=== PATIENT | male | born 1985 | race Caucasian/White ===

== ENCOUNTER 2016-10-16 16:29 | Emergency (ER) | payer MEDICARE, OTHER, MEDICAID ==
[2016-10-16 17:38] VITALS: BP 136/82
--- NOTE | 2016-10-16 17:43 | ER Document Report ---
ED Medical Screen (RME) - General Chief Complaint: Psych Problem Stated Complaint: NAUSEA,VOMITING Time Seen by Provider: 10/16/16 17:26 Mode of Arrival: Ambulatory Information source: Patient Notes: 31-year-old man who presents to the emergency room with worsening anxiety. He does have a history of bipolar affective disorder with schizophrenic features and states that he ran out of his medicines 2 weeks ago and has been waiting for his medicines to be refilled by [facility]. In in today because he was feeling worse - HPI Onset: Last week Onset/Duration: Gradual Quality of pain: No pain Severity: None Pain Level: Denies Associated Symptoms: None Exacerbated by: Denies Relieved by: Denies Similar symptoms previously: Yes Recently seen / treated by doctor: Yes - Related Data Smoking: Non-smoker Frequency of alcohol use: None Drug Abuse: None Allergies/Adverse Reactions: Latex, Natural Rubber Allergy (Verified 10/16/16 17:12) quetiapine [From Seroquel] Allergy (Verified 10/16/16 17:12) zolpidem [From Ambien] Allergy (Verified 10/16/16 17:12) Home Medications: Current Home Medications Fexofenadine HCl [Cassandra] 180 mg PO DAILY 10/16/16 [History] Hydroxyzine HCl 25 mg PO TID 10/16/16 [History] Lamotrigine 50 mg PO DAILY 10/16/16 [History] Omeprazole 40 mg PO DAILY 10/16/16 [History] Ziprasidone HCl [Geodon 60 mg Capsule] 60 mg PO BID 10/16/16 [History] Past Medical History - General Information source: Patient - Social History Cigarette use (# per day): No Chew tobacco use (# tins/day): No Frequency of alcohol use: None Drug Abuse: None Lives with: Family Family history: Reviewed & Not Pertinent - Past Medical History Cardiac Medical History: Reports: None Pulmonary Medical History: Reports: None EENT Medical History: Reports: None Neurological Medical History: Reports: None Endocrine Medical History: Reports: None Renal/ Medical History: Reports: None Malignancy Medical History: Reports None GI Medical History: Reports: None Musculoskeltal Medical History: Reports None Skin Medical History: Reports None Psychiatric Medical History: Reports: Hx Bipolar Disorder, Hx Depression Review of Systems - Review of Systems Constitutional: denies: Chills, Fever EENT: No symptoms reported Cardiovascular: No symptoms reported Respiratory: No symptoms reported Gastrointestinal: No symptoms reported Genitourinary: No symptoms reported Male Genitourinary: No symptoms reported Musculoskeletal: No symptoms reported Skin: No symptoms reported Hematologic/Lymphatic: No symptoms reported Neurological/Psychological: See HPI Physical Exam - Vital signs Vitals: Pulse Resp BP Pulse Ox 94 18 136/82 H 97 10/16/16 17:37 10/16/16 17:37 10/16/16 17:37 10/16/16 17:37 Notes: Physical exam: GENERAL:-year-old man, alert and oriented 3, no acute distress HEAD: Atraumatic, normocephalic. EYES: Pupils equal round and reactive to light, extraocular movements intact, sclera anicteric, conjunctiva are normal. ENT: TMs normal, nares patent, oropharynx clear without exudates. Moist mucous membranes. NECK: Normal range of motion, supple without lymphadenopathy or JVD. LUNGS: Breath sounds clear to auscultation bilaterally and equal. No wheezes rales or rhonchi. HEART: Regular rate and rhythm without murmurs, rubs or gallops. ABDOMEN: Soft, normoactive bowel sounds. No tenderness to palpation. No guarding, no rebound. No masses appreciated. EXTREMITIES: Normal range of motion, no pitting or edema. No clubbing or cyanosis. NEUROLOGICAL: Cranial nerves II through XII grossly intact. Normal speech, normal gait. PSYCH: Normal mood, normal affect. SKIN: Warm, Dry, normal turgor, no rashes or lesions noted. Course - Vital Signs Vital signs: Temp Pulse Resp BP Pulse Ox 94 18 136/82 H 97 10/16/16 17:37 10/16/16 17:37 10/16/16 17:37 10/16/16 17:37 Doctor's Discharge - Discharge Clinical Impression: Bipolar affective disorder Condition: Stable Disposition: HOME, SELF-CARE Additional Instructions: As we discussed, follow-up at [facility] this week. Call the office first thing in the morning The emergency room for any thoughts of wanting to hurt yourself or others Prescriptions: Hydroxyzine HCl 50 mg PO QHS PRN #10 tablet PRN Reason: Lamotrigine 50 mg PO DAILY #10 tablet Ziprasidone HCl 60 mg PO BID #10 capsule
[2016-10-16] MEDS ORDERED: PROMETHAZINE HCL 25 MG TABLET PO ONE (17:52)
== END 2016-10-16 17:59 | disposition home or self-care (01) ==
LOC: ER 16:29
DX: F31.9 Bipolar disorder, unspecified (principal); R11.2 Nausea with vomiting, unspecified; Z79.899 Other long term (current) drug therapy
CPT/HCPCS: 99284; A9270

== ENCOUNTER 2017-03-10 19:59 | Emergency (ER) | payer MEDICARE, OTHER ==
--- NOTE | 2017-03-10 20:49 | ER Document Report ---
ED Psych Disorder / Suicide - General Mode of Arrival: Ambulatory Information source: Patient <ALEENA JOHN - Last Filed: 03/11/17 01:22> <BLACK REYES - Last Filed: 03/11/17 01:56> - General Stated Complaint: POSSIBLE SUICIDAL IDEATION Time Seen by Provider: 03/10/17 20:11 Notes: Patient is a 32 year old male with a history of Bipolar Disorder, Depression, and Schizophrenia presents to the emergency department for suicidal ideation. Patient states that he had gotten into a argument with his and his grandmother. Patient states that after the argument he decided to self harm with a razor on his left arm and that he wanted everything to stop.Patient states that he realized that he was making things worse he decided to stop. Patient states that he did not or currently has any suicidal or homicidal plans. Patient states that he often gets into arguments with his and feels that he has to "one up" his during arguments. Patient states that he often feels lonely when not with his and that he has no family in state. Patient states he missed his [facility] appointment yesterday and feels that his medication is not working incredibly well. (ALEENA JOHN) - Related Data Allergies/Adverse Reactions: Latex, Natural Rubber Allergy (Verified 10/16/16 17:12) quetiapine [From Seroquel] Allergy (Verified 10/16/16 17:12) zolpidem [From Ambien] Allergy (Verified 10/16/16 17:12) Home Medications: Current Home Medications Albuterol Sulfate [Proair Hfa Inhalation Aerosol 8.5 gm Mdi] 2 puff IH Q4HP PRN 03/10/17 [History] Lamotrigine 150 mg PO DAILY 03/10/17 [History] Ramelteon [Rozerem] 8 mg PO QHS 03/10/17 [History] Past Medical History - General Information source: Patient - Social History Smoking Status: Current Every Day Smoker Chew tobacco use (# tins/day): No Smoking Education Provided: Yes - > 4 mins Frequency of alcohol use: Occasional Drug Abuse: None Family History: Reviewed & Not Pertinent Psychiatric Medical History: Reports: Hx Bipolar Disorder, Hx Depression <ALEENA JOHN - Last Filed: 03/11/17 01:22> Review of Systems - Review of Systems Constitutional: No symptoms reported EENT: No symptoms reported Cardiovascular: No symptoms reported Respiratory: No symptoms reported Gastrointestinal: No symptoms reported Genitourinary: No symptoms reported Male Genitourinary: No symptoms reported Musculoskeletal: No symptoms reported Skin: No symptoms reported Hematologic/Lymphatic: No symptoms reported Neurological/Psychological: See HPI, Suicidal ideation -: Yes All other systems reviewed and negative <ALEENA JOHN - Last Filed: 03/11/17 01:22> Physical Exam <ALEENA JOHN - Last Filed: 03/11/17 01:22> <LEXATAMMIBLACK - Last Filed: 03/11/17 01:56> - Vital signs Vitals: Temp Pulse Resp BP Pulse Ox 99.2 F 99 20 146/87 H 96 03/10/17 22:08 03/10/17 22:08 03/10/17 22:08 03/10/17 22:08 03/10/17 22:08 - Notes Notes: GENERAL: Alert, interacts well. No acute distress. HEAD: Normocephalic, atraumatic. EYES: Pupils equal, round, and reactive to light. Extraocular movements intact. ENT: Oral mucosa moist, tongue midline. NECK: Full range of motion. Supple. Trachea midline. LUNGS: Clear to auscultation bilaterally, no wheezes, rales, or rhonchi. No respiratory distress. HEART: Regular rate and rhythm. No murmurs, gallops, or rubs. ABDOMEN: Soft, non-tender. Non-distended. Bowel sounds present in all 4 quadrants. EXTREMITIES:Superficial abrasions on left forearm, volar aspect, no active bleeding. Moves all 4 extremities spontaneously. No edema, radial and dorsalis pedis pulses 2/4 bilaterally. No cyanosis. NEUROLOGICAL: Alert and oriented x3. Normal speech. PSYCH: Normal affect, normal mood. SKIN: Warm, dry, normal turgor. (DORAALEENA) Course - Laboratory Result Diagrams: 03/10/17 20:45 03/10/17 20:45 - Consults ALEJANDRA Rosales Time consulted: 20:53 - Stated already talked to patient, agreed to appointment on 03/13/2017 and discussed changing medicaiton. <ALEENA JOHN - Last Filed: 03/11/17 01:22> - Laboratory Result Diagrams: 03/10/17 20:45 03/10/17 20:45 <BLACK REYES - Last Filed: 03/11/17 01:56> - Re-evaluation Re-evalutation: 03/11/17 01:54 CBC unremarkable, CMP unremarkable, urinalysis shows moderate blood and moderate leukocyte esterase, 3+ bacteria, sent for culture. No active suicidal ideation at this time, showed good insight and understanding why he started to make superficial cut jackson and why he is fighting with his and other family members from his side of the family. Patient already has a follow-up appointment on Monday, discussed with Dr. Garza who agrees that the patient is safe for discharge to home, agrees that the patient should not have medications adjusted tonight but wait until his follow-up appointment on Monday with alejandra. [facility]. Patient in agreement with discharge plan and eager to leave. 03/11/17 01:55 UTI treated with antibiotics. Low suspicion for kidney stone. Denies any urinary symptoms or flank pain. (BLACK REYES) - Vital Signs Vital signs: Temp Pulse Resp BP Pulse Ox 99.2 F 99 20 146/87 H 96 03/10/17 22:08 03/10/17 22:08 03/10/17 22:08 03/10/17 22:08 03/10/17 22:08 - Laboratory Laboratory results interpreted by me: 03/10/17 03/10/17 20:45 20:45 Urine Protein 30 H Urine Blood MODERATE H Ur Leukocyte Esterase MODERATE H Salicylates < 1.0 L Acetaminophen < 10 L - EKG Interpretation by Me Additional EKG results interpreted by me: 03/10/17 22:11 EKG shows sinus rhythm rate 96, normal axis, normal intervals, no ST segment elevations or depressions, no T-wave inversions per my interpretation. (BLACK REYES) Discharge <ALEENA JOHN - Last Filed: 03/11/17 01:22> <BLACK REYES - Last Filed: 03/11/17 01:56> - Discharge Clinical Impression: Self-mutilation Urinary tract infection Qualifiers: Urinary tract infection type: acute cystitis Hematuria presence: with hematuria Qualified Code(s): N30.01 - Acute cystitis with hematuria Hypertension Qualifiers: Hypertension type: essential hypertension Qualified Code(s): I10 - Essential ( primary) hypertension Condition: Stable Disposition: HOME, SELF-CARE Instructions: Urinary Tract Infection ([facility]) Additional Instructions: Please follow-up with [facility] on Monday. You do have a mild urinary tract infection today, he has some blood in it. I have prescribed to Bactrim. This is an antibiotic. It will not interact with your medications. Please take 1 tab twice a day for the next 7 days. Prescriptions: Sulfamethoxazole/Trimethoprim [Bactrim Ds Tablet] 1 each PO BID #14 tablet Forms: Elevated Blood Pressure Referrals: VANDANA YANG MD [Primary Care Provider] - Follow up in 3-5 days [facility] [Provider Group] - 03/13/17 Tigre Attestation: 03/11/17 01:56 I personally performed the services described in the documentation, reviewed and edited the documentation which was dictated to the scribe in my presence, and it accurately records my words and actions. (BLACK REYES) Scribe Documentation - Scribe Written by Tigre:: Tigre Sanchez, 03/10/2017 20:59 acting as scribe for :: Jeff <ALEENA JOHN - Last Filed: 03/11/17 01:22>
[2017-03-10 20:59] LABS: ABSOLUTE BASOPHILS # (AUTO) 0.1 10^3/uL (0.0-0.2); ABSOLUTE EOSINOPHILS # (AUTO) 0.2 10^3/uL (0.0-0.6); ABSOLUTE LYMPHOCYTES (AUTO) 3.1 10^3/uL (0.5-4.7); ABSOLUTE MONOCYTES (AUTO) 0.4 10^3/uL (0.1-1.4); ABSOLUTE NEUT (AUTO) 6.5 10^3/uL (1.7-8.2); BASOPHILS % (AUTO) 0.8 % (0-2); EOSINOPHILS % (AUTO) 1.7 % (0-6); HEMATOCRIT 43.6 % (37.9-51.0); HEMOGLOBIN 14.9 g/dL (13.5-17.0); HGB HCT DIFFERENCE 1.1; LYMPHOCYTES % (AUTO) 30.4 % (13-45); MEAN CORPUSCULAR HEMOGLOBIN 28.5 pg (27.0-33.4); MEAN CORPUSCULAR HGB CONC 34.2 g/dL (32.0-36.0); MEAN CORPUSCULAR VOLUME 83 fl (80-97); MONOCYTES % (AUTO) 4.3 % (3-13); RED BLOOD COUNT 5.23 10^6/uL (4.35-5.55); SEGMENTED NEUTROPHILS % (AUTO) 62.8 % (42-78); WHITE BLOOD COUNT 10.3 10^3/uL (4.0-10.5)
--- NOTE | 2017-03-10 21:01 | EKG REPORT ---
SEVERITY:- NORMAL ECG - SINUS RHYTHM : Confirmed by: Ravi Quinones 10-Mar-2017 21:00:48
[2017-03-10 21:02] LABS: APPEARANCE,URINE SLIGHTLY-CLOUDY; BILIRUBIN,URINE NEGATIVE (NEGATIVE); GLUCOSE, URINE NEGATIVE (NEGATIVE); KETONES,URINE NEGATIVE (NEGATIVE); LEUKOCYTE ESTERASE,URINE MODERATE (NEGATIVE); NITRITE,URINE NEGATIVE (NEGATIVE); PROTEIN,URINE 30 mg/dL (NEGATIVE); URINE SPECIFIC GRAVITY 1.017; UROBILINOGEN,URINE NEGATIVE mg/dL (<2.0)
[2017-03-10 21:12] LABS: URINE BARBITURATES SCREEN NEGATIVE; URINE METHADONE SCREEN NEGATIVE; URINE OPIATES LOW NEGATIVE; URINE PHENCYCLIDINE SCREEN NEGATIVE
[2017-03-10 21:15] LABS: ALANINE AMINOTRANSFERASE 65 U/L (21-72); ALBUMIN 4.4 g/dL (3.5-5.0); ALCOHOL < 10 mg/dL (NONE DETECTED); ALKALINE PHOSPHATASE 72 U/L (38-126); ANION GAP 12 (5-19); ASPARTATE AMINO TRANSFERASE 29 U/L (17-59); BILIRUBIN,DIRECT 0.2 mg/dL (0.0-0.4); BILIRUBIN,TOTAL 0.3 mg/dL (0.2-1.3); BLOOD UREA NITROGEN 9 mg/dL (7-20); CALCIUM 9.6 mg/dL (8.4-10.2); CARBON DIOXIDE 28 mmol/L (22-30); CHLORIDE 101 mmol/L (98-107); CREATININE RESULT 0.79 mg/dL (0.52-1.25); GLUCOSE 101 mg/dL (75-110); POTASSIUM 4.5 mmol/L (3.6-5.0); SODIUM 141.4 mmol/L (137-145)
[2017-03-10 22:10] VITALS: BP 146/87
== END 2017-03-10 22:20 | disposition home or self-care (01) ==
LOC: ER 19:59
DX: N30.01 Acute cystitis with hematuria (principal); I10 Essential (primary) hypertension; R45.851 Suicidal ideations; Z91.040 Latex allergy status
CPT/HCPCS: 36415; 80053; 80307; 81001; 85025; 93005; 93010; 99284

== ENCOUNTER 2017-07-14 19:59 | Emergency (ER) | payer MEDICARE, MEDICAID ==
[2017-07-14 22:03] LABS: APPEARANCE,URINE CLOUDY; BILIRUBIN,URINE NEGATIVE (NEGATIVE); COLOR,URINE YELLOW; GLUCOSE, URINE NEGATIVE (NEGATIVE); KETONES,URINE NEGATIVE (NEGATIVE); LEUKOCYTE ESTERASE,URINE LARGE (NEGATIVE); NITRITE,URINE POSITIVE (NEGATIVE); PROTEIN,URINE 100 mg/dL (NEGATIVE); URINE SPECIFIC GRAVITY 1.021; UROBILINOGEN,URINE NEGATIVE mg/dL (<2.0)
[2017-07-14] MEDS ORDERED: LIDOCAINE 1% INJ-PF (10 MG/ML) 30 ML SDV INFIL ONE (22:36)
[2017-07-14] MEDS ORDERED: CEFTRIAXONE INJ 1000 MG VIAL IM ONE (22:36)
--- NOTE | 2017-07-14 23:04 | ER Document Report ---
ED GI/ - General Chief Complaint: Penile Pain Stated Complaint: TESTICULAR PAIN Time Seen by Provider: 07/14/17 21:22 Notes: Patient is a 32-year-old male with a past medical history of morbid obesity, does practice penetrative anal intercourse who presents with 1 week of progressively worsening scrotal swelling and pain. Patient notes a dull, constant, throbbing pain to his scrotum particularly on the left side. Touching the area worsens the pain. Nothing improves the pain. He denies any history of similar symptoms in the past. He is monogamous with one male partner. He has not had any fever, spreading redness on his leg, lymphadenopathy, abdominal pain nausea vomiting or diarrhea. He does note associated dysuria and bleeding from his urethral meatus. - Related Data Allergies/Adverse Reactions: Latex, Natural Rubber Allergy (Verified 10/16/16 17:12) quetiapine [From Seroquel] Allergy (Verified 10/16/16 17:12) zolpidem [From Ambien] Allergy (Verified 10/16/16 17:12) Past Medical History - General Information source: Patient - Social History Smoking Status: Never Smoker Frequency of alcohol use: None Drug Abuse: None Lives with: Spouse/Significant other Family History: Reviewed & Not Pertinent Patient has suicidal ideation: No Patient has homicidal ideation: No Renal/ Medical History: Denies: Hx Peritoneal Dialysis Psychiatric Medical History: Reports: Hx Bipolar Disorder, Hx Depression Review of Systems - Review of Systems Notes: Constitutional: Negative for fever. HENT: Negative for sore throat. Eyes: Negative for visual changes. Cardiovascular: Negative for chest pain. Respiratory: Negative for shortness of breath. Gastrointestinal: Negative for abdominal pain, vomiting or diarrhea. Genitourinary: Positive for dysuria, scrotal swelling, testicular pain Musculoskeletal: Negative for back pain. Skin: Negative for rash. Neurological: Negative for headaches, weakness or numbness. 10 point ROS negative except as marked above and in HPI. Physical Exam - Vital signs Vitals: Temp Pulse Resp BP Pulse Ox 98.0 F 97 18 146/89 H 98 07/14/17 20:25 07/14/17 20:25 07/14/17 20:25 07/14/17 20:25 07/14/17 20:25 Interpretation: Normal Notes: PHYSICAL EXAMINATION: GENERAL: Well-appearing, well-nourished and in no acute distress. HEAD: Atraumatic, normocephalic. EYES: Pupils equal round and reactive to light, extraocular movements intact, sclera anicteric, conjunctiva are normal. ENT: nares patent, oropharynx clear without exudates. Moist mucous membranes. NECK: Normal range of motion, supple without lymphadenopathy LUNGS: Breath sounds clear to auscultation bilaterally and equal. No wheezes rales or rhonchi. HEART: Regular rate and rhythm without murmurs ABDOMEN: Soft, morbidly obese abdomen, nontender, normoactive bowel sounds. No guarding, no rebound. No masses appreciated. : Diffuse scrotal swelling more impressive towards the left testicle. No evidence of a fluid collection or drainable mass. No erythema noted to the scrotum or inner thighs. No inguinal lymphadenopathy. No penile lesions. EXTREMITIES: Normal range of motion, no pitting or edema. No cyanosis. NEUROLOGICAL: No focal neurological deficits. Moves all extremities spontaneously and on command. PSYCH: Normal mood, normal affect. SKIN: Warm, Dry, normal turgor, no rashes or lesions noted. Course - Re-evaluation Re-evalutation: 07/14/17 23:03 Patient's presentation is most consistent with an acute orchitis of the left testicle supported by urinalysis and ultrasound. Questionable associated cellulitis of the scrotum on ultrasound with a edematous nature to the scrotum but no evidence of a drainable fluid collection on either exam or ultrasound. No evidence of necrotizing fasciitis based on examination, vitals or history. I do not clinically suspect a testicular torsion, testicular abscess, or any alternative pathology based on exam, history, urinalysis and ultrasound. Patient has been treated with ceftriaxone here in the emergency department and will be discharged on cephalexin and trimethoprim sulfamethoxazole. At this time will discharge with return precautions and follow-up recommendations. Verbal discharge instructions given a the bedside and opportunity for questions given. Medication warnings reviewed. Patient is in agreement with this plan and has verbalized understanding of return precautions and the need for primary care follow-up in the next 24-72 hours. - Vital Signs Vital signs: Temp Pulse Resp BP Pulse Ox 98.0 F 105 H 18 156/99 H 98 07/14/17 20:25 07/15/17 00:30 07/15/17 00:30 07/15/17 00:30 07/15/17 00:30 - Laboratory Laboratory results interpreted by me: 07/14/17 21:35 Urine Protein 100 H Urine Blood MODERATE H Urine Nitrite POSITIVE H Ur Leukocyte Esterase LARGE H - Diagnostic Test Radiology reviewed: Reports reviewed Discharge - Discharge Clinical Impression: Orchitis, Cellulitis of scrotum Condition: Good Disposition: HOME, SELF-CARE Additional Instructions: You need to take all the antibiotics until they are completed. Your ultrasound and history are most consistent with an infection of your left testicle as well as a possible infection of your scrotum. For your pain: Take ibuprofen 600 mg and acetaminophen 1000 mg every 6 hours together as needed for pain. Please follow-up with urology within the next 24-48 hours. Return immediately to the emergency department if you develop fever, worsening of your swelling, worsening of your pain, become unable to urinate, or have any other symptoms that are worrisome to you. Prescriptions: Cephalexin Monohydrate [Keflex 500 mg Capsule] 500 mg PO Q6H 7 Days capsule Sulfamethoxazole/Trimethoprim [Bactrim Ds Tablet] 2 tab PO BID #28 tablet Referrals: AVNDANA YANG MD [Primary Care Provider] - Follow up as needed KATIE PULIDO II, MD [[facility]] - Follow up in 3-5 days
[2017-07-14 23:17] LABS: CHLAM PCR NOT DETECTED (NOT DETECT); GON PCR NOT DETECTED (NOT DETECT)
--- NOTE | 2017-07-14 23:41 | RADIOLOGY REPORT (SQ) ---
EXAM DESCRIPTION: U/S SCROTUM W/DOPPLER COMPLETED DATE/TIME: 07/14/2017 10:54 pm REASON FOR STUDY: testicular pain COMPARISON: None. TECHNIQUE: Static and realtime tong scale imaging of the scrotum and testes. Selected color Doppler and spectral images recorded to document blood flow. LIMITATIONS: None. FINDINGS: RIGHT: TESTICLE: Normal size. Normal echotexture. Normal blood flow. No mass. EPIDIDYMIS: Mild heterogeneous appearance-enlargement. HYDROCELE OR VARICOCELE: Small complex hydrocele. No varicocele. HERNIA OR EXTRA-TESTICULAR MASS: No. OTHER: Scrotal skin thickening and heterogeneous fluid in the midline. LEFT: TESTICLE: Normal size. Normal echotexture. Normal blood flow. No mass. EPIDIDYMIS: Mild heterogeneous appearance-enlargement. HYDROCELE OR VARICOCELE: Trace hydrocele. No varicocele. HERNIA OR EXTRA-TESTICULAR MASS: No. OTHER: Scrotal skin thickening and heterogeneous fluid in the midline. IMPRESSION: Scrotal skin thickening and heterogeneous fluid in the midline subcutaneous soft tissues . Mild heterogeneous appearance -enlargement of each epididymis. Small complex right hydrocele. NO EVIDENCE OF TESTICULAR MASS OR TORSION. TECHNICAL DOCUMENTATION: JOB ID: [id number] [employer] - [employer]- All Rights Reserved Reading location - IP/workstation name: [email or web address]
[2017-07-15] MEDS ORDERED: SULFAMETHOXAZOLE/TRIMETHOPRIM 800-160 MG TABLET PO ONE (00:06)
[2017-07-15 00:33] VITALS: BP 156/99
== END 2017-07-15 00:33 | disposition home or self-care (01) ==
LOC: ER 19:59
DX: N45.2 Orchitis (principal); N49.2 Inflammatory disorders of scrotum; E66.01 Morbid (severe) obesity due to excess calories; Z91.040 Latex allergy status
CPT/HCPCS: 99284; 36415; 87086; 87088; 81001; 87186; 87491; 87591; 76870; 93976; J3490; J0696; A9270

== ENCOUNTER 2018-06-08 22:34 | Emergency (ER) | payer MEDICARE, MEDICAID ==
--- NOTE | 2018-06-08 22:37 | ER Document Report ---
ED Medical Screen (RME) - General Stated Complaint: SUICIDAL THOUGHTS Time Seen by Provider: 06/08/18 22:35 Primary Care Provider: VANDANA YANG MD [PEDIATRICS] - Follow up as needed Mode of Arrival: Ambulatory Information source: Patient Notes: PT HAVING SI THOUGHT FOR A FEW MONTHS. HAS ATTEMPTED IN THE PAST. HAS NEIGHBOR WITH HIM, HAS BEEN TAKING TYLENOL EVERY FEW HOURS-- ? I have greeted and performed a rapid initial assessment of this patient. A comprehensive ED assessment and evaluation of the patient, analysis of test results and completion of the medical decision making process will be conducted by additional ED providers. - Related Data Allergies/Adverse Reactions: Latex, Natural Rubber Allergy (Verified 10/16/16 17:12) quetiapine [From Seroquel] Allergy (Verified 10/16/16 17:12) zolpidem [From Ambien] Allergy (Verified 10/16/16 17:12) Past Medical History - Social History Family history: Reviewed & Not Pertinent Renal/ Medical History: Denies: Hx Peritoneal Dialysis Psychiatric Medical History: Reports: Hx Bipolar Disorder, Hx Depression Physical Exam - Vital signs Vitals: Temp Pulse Resp BP Pulse Ox 98.7 F 109 H 19 150/87 H 97 06/09/18 00:10 06/09/18 00:10 06/09/18 00:10 06/09/18 00:10 06/09/18 00:10 Course - Vital Signs Vital signs: Temp Pulse Resp BP Pulse Ox 98.7 F 109 H 19 150/87 H 97 06/09/18 00:10 06/09/18 00:10 06/09/18 00:10 06/09/18 00:10 06/09/18 00:10 - Laboratory Result Diagrams: 06/08/18 22:40 06/08/18 22:40 Laboratory results interpreted by me: 06/08/18 06/08/18 06/08/18 22:40 22:40 22:40 WBC 14.7 H RDW 14.3 H Absolute Neutrophils 8.9 H Calcium 10.5 H AST 90 H ALT 139 H Total Protein 8.7 H Urine Blood MODERATE H Ur Leukocyte Esterase SMALL H Salicylates < 1.0 L Acetaminophen < 10 L Doctor's Discharge - Discharge Referrals: VANDANA YANG MD [PEDIATRICS] - Follow up as needed
[2018-06-08 23:10] LABS: ABSOLUTE BASOPHILS # (AUTO) 0.1 10^3/uL (0.0-0.2); ABSOLUTE EOSINOPHILS # (AUTO) 0.3 10^3/uL (0.0-0.6); ABSOLUTE LYMPHOCYTES (AUTO) 4.7 10^3/uL (0.5-4.7); ABSOLUTE MONOCYTES (AUTO) 0.7 10^3/uL (0.1-1.4); ABSOLUTE NEUT (AUTO) 8.9 10^3/uL (1.7-8.2); BASOPHILS % (AUTO) 0.7 % (0-2); EOSINOPHILS % (AUTO) 1.9 % (0-6); HEMATOCRIT 43.8 % (37.9-51.0); HEMOGLOBIN 15.3 g/dL (13.5-17.0); LYMPHOCYTES % (AUTO) 32.1 % (13-45); MEAN CORPUSCULAR HEMOGLOBIN 29.6 pg (27.0-33.4); MEAN CORPUSCULAR HGB CONC 34.9 g/dL (32.0-36.0); MEAN CORPUSCULAR VOLUME 85 fl (80-97); MONOCYTES % (AUTO) 4.8 % (3-13); PLATELET COUNT 386 10^3/uL (150-450); RED BLOOD COUNT 5.16 10^6/uL (4.35-5.55); RED CELL DISTRIBUTION WIDTH 14.3 % (11.5-14.0); SEGMENTED NEUTROPHILS % (AUTO) 60.5 % (42-78); TOTAL CELLS COUNTED % (AUTO) 100 %; WHITE BLOOD COUNT 14.7 10^3/uL (4.0-10.5)
[2018-06-08 23:26] LABS: APPEARANCE,URINE SLIGHTLY-CLOUDY; BILIRUBIN,URINE NEGATIVE (NEGATIVE); COLOR,URINE YELLOW; GLUCOSE, URINE NEGATIVE (NEGATIVE); KETONES,URINE NEGATIVE (NEGATIVE); LEUKOCYTE ESTERASE,URINE SMALL (NEGATIVE); NITRITE,URINE NEGATIVE (NEGATIVE); PROTEIN,URINE NEGATIVE (NEGATIVE); URINE SPECIFIC GRAVITY 1.021; UROBILINOGEN,URINE NEGATIVE mg/dL (<2.0)
[2018-06-08 23:35] LABS: URINE AMPHETAMINES SCREEN NEGATIVE; URINE BARBITURATES SCREEN NEGATIVE; URINE BENZODIAZEPINES SCREEN NEGATIVE; URINE COCAINE SCREEN NEGATIVE; URINE MARIJUANA (THC) SCREEN NEGATIVE; URINE METHADONE SCREEN NEGATIVE; URINE PHENCYCLIDINE SCREEN NEGATIVE
[2018-06-08 23:42] LABS: ALANINE AMINOTRANSFERASE 139 U/L (21-72); ALBUMIN 4.8 g/dL (3.5-5.0); ALKALINE PHOSPHATASE 80 U/L (38-126); ANION GAP 16 (5-19); ASPARTATE AMINO TRANSFERASE 90 U/L (17-59); BILIRUBIN,DIRECT 0.3 mg/dL (0.0-0.4); BILIRUBIN,TOTAL 0.4 mg/dL (0.2-1.3); BLOOD UREA NITROGEN 15 mg/dL (7-20); CALCIUM 10.5 mg/dL (8.4-10.2); CARBON DIOXIDE 24 mmol/L (22-30); CHLORIDE 101 mmol/L (98-107); GLUCOSE 92 mg/dL (75-110); POTASSIUM 4.5 mmol/L (3.6-5.0); SODIUM 140.6 mmol/L (137-145); TOTAL PROTEIN 8.7 g/dL (6.3-8.2)
[2018-06-08 23:49] LABS: ACETAMINOPHEN < 10 ug/mL (10-30); ALCOHOL < 10 mg/dL (NONE DETECTED); SALICYLATE < 1.0 mg/dL (2.0-20.0)
[2018-06-09] MEDS ORDERED: MIRTAZAPINE 15 MG TABLET PO ONE (01:06)
--- NOTE | 2018-06-09 07:01 | ER Document Report ---
ED General <ROMAN BROUSSARD - Last Filed: 06/09/18 11:20> - General Mode of Arrival: Ambulatory <YASMINE COVARRUBIAS - Last Filed: 06/10/18 08:31> - General Chief Complaint: Suicidal Ideation Stated Complaint: SUICIDAL THOUGHTS Time Seen by Provider: 06/08/18 22:35 Primary Care Provider: Mireya TUTTLE [Provider Group] - Follow up as needed VANDANA YANG MD [PEDIATRICS] - Follow up as needed Notes: Patient is a 33-year-old male who presents with complaint of suicidal thoughts. Patient says he has had intermittent suicidal thoughts for a while now. Says tonight he became very upset. His neighbors have him come to the ER because of the concerns of what he said. He does admit to saying that he want to kill himself. He says he does not think he will ever actually kill himself but he sometimes becomes emotional upset and will say these things. Patient showed me several text messages as well as Facebook posts where he talked about not wanting to live and wanting to . Patient says he is on medications for depression but feels that maybe they need to be adjusted. He has no other complaints at this time. (YASMINE COVARRUBIAS) - Related Data Allergies/Adverse Reactions: Latex, Natural Rubber Allergy (Verified 10/16/16 17:12) quetiapine [From Seroquel] Allergy (Verified 10/16/16 17:12) zolpidem [From Ambien] Allergy (Verified 10/16/16 17:12) Past Medical History - General Information source: Patient - Social History Smoking Status: Current Every Day Smoker Frequency of alcohol use: Occasional Drug Abuse: None Family History: Reviewed & Not Pertinent Patient has suicidal ideation: No Patient has homicidal ideation: No Pulmonary Medical History: Reports: Hx Asthma Renal/ Medical History: Denies: Hx Peritoneal Dialysis Psychiatric Medical History: Reports: Hx Attention Deficit Hyperactivity Disorder, Hx Bipolar Disorder, Hx Depression Past Surgical History: Reports: Hx Cholecystectomy <YASMINE COVARRUBIAS - Last Filed: 06/10/18 08:31> Review of Systems <YASMINE COVARRUBIAS - Last Filed: 06/10/18 08:31> - Review of Systems Notes: My Normal Review Basic REVIEW OF SYSTEMS: CONSTITUTIONAL : Denies fever, chills, or sweats. Denies recent illness. RESPIRATORY: Denies cough, cold, or chest congestion. Denies shortness of breath, difficulty breathing, or wheezing. GASTROINTESTINAL: Denies abdominal pain. Denies nausea, vomiting, or diarrhea. GENITOURINARY: Denies difficulty urinating, painful urination, burning, frequency, or blood in urine. MUSCULOSKELETAL: Denies neck or back pain or joint pain or swelling. SKIN: Denies rash or skin lesions. NEUROLOGICAL: Denies altered mental status or loss of consciousness. Denies headache. Denies weakness or paralysis or loss of use of either side. Denies problems with gait or speech. Denies sensory or motor loss. PSYCHIATRIC: Suicidal ideations ALL OTHER SYSTEMS REVIEWED AND NEGATIVE. (YASMINE COVARRUBIAS) Physical Exam <YASMINE COVARRUBIAS - Last Filed: 06/10/18 08:31> - Vital signs Vitals: Temp Pulse Resp BP Pulse Ox 98.7 F 109 H 19 150/87 H 97 06/09/18 00:10 06/09/18 00:10 06/09/18 00:10 06/09/18 00:10 06/09/18 00:10 - Notes Notes: General Appearance: Well nourished, alert, cooperative, no acute distress, no obvious discomfort. Well appearing. Vitals: reviewed, See vital signs table. Head: no swelling or tenderness to the head Eyes: PERRL, EOMI, Conjuctiva clear Mouth: No decreasd moisture Lungs: No wheezing, No rales, No rhonci, No accessory muscle use, good air exchange bilaterally. Heart: Normal rate, Regular rythm, No murmur, no rub Abdomen: Normal BS, soft, No rigidity, No abdominal tenderness, No guarding, no rebound, no abdominal masses, no organomegaly Extremities: strength 5/5 in all extremities, good pulses in all extremities, no swelling or tenderness in the extremities, no edema. Skin: warm, dry, appropriate color, no rash Neuro: speech clear, oriented x 3, normal affect, responds appropriately to questions. Gastric: Good eye contact. Demonstrates good organized thought process. No evidence of hallucinations during exam. (YASMINE COVARRUBIAS) Course - Laboratory Result Diagrams: 06/08/18 22:40 06/08/18 22:40 <ROMAN BROUSSARD - Last Filed: 06/09/18 11:20> - Laboratory Result Diagrams: 06/08/18 22:40 06/08/18 22:40 <YASMINE COVARRUBIAS - Last Filed: 06/10/18 08:31> - Re-evaluation Re-evalutation: 06/09/18 07:00 Informed patient I feel that he needs to be evaluated by mental health based on the text messages on Facebook post that he showed me where she mentioned several times that he wants to when she was and expressed significant suicidal ideations. Patient currently says he feels improved and looks well. He is medically stable for mental health evaluation. Dictation of this chart was performed using voice recognition software; therefore, there may be some unintended grammatical errors. (YASMINE COVARRUBIAS) - Vital Signs Vital signs: Temp Pulse Resp BP Pulse Ox 97.4 F 104 H 22 H 147/98 H 99 06/09/18 22:00 06/09/18 22:00 06/09/18 22:00 06/09/18 22:00 06/09/18 22:00 - Laboratory Laboratory results interpreted by me: 06/08/18 06/08/18 06/08/18 22:40 22:40 22:40 WBC 14.7 H RDW 14.3 H Absolute Neutrophils 8.9 H Calcium 10.5 H AST 90 H ALT 139 H Total Protein 8.7 H Urine Blood MODERATE H Ur Leukocyte Esterase SMALL H Salicylates < 1.0 L Acetaminophen < 10 L - EKG Interpretation by Me Additional EKG results interpreted by me: 06/09/18 06:58 EKGs reviewed and interpreted by me. EKG shows sinus rhythm with a rate of [address] segment elevation or depression. No ischemic T wave inversions. ID interval, QRS duration, QT intervals are within normal range. No old EKG available for comparison. (YASMINE COVARRUBIAS) Discharge <ROMAN BROUSSARD - Last Filed: 06/09/18 11:20> <YASMINE COVARRUBIAS - Last Filed: 06/10/18 08:31> - Discharge Clinical Impression: Suicidal ideations Condition: Stable Disposition: HOME, SELF-CARE Additional Instructions: You have been evaluated and assessed at [facility] Emergency Department by both the medical and behavioral health teams after presenting for suicidal thoughts and are now deemed appropriate for discharge. While in the ED, you received an initial medical screening, lab work, EKG, medications, direct staff observation, clinical evaluation, physician assessment, and outpatient resources. You were cleared from both services and record review revealed a history of suicidal thoughts. Mobile crisis resources were provided to you for when these sit uations arise. You are encouraged to develop positive coping skills through outpatient counseling and resume participating in your day program at [facility]. You are also encouraged to follow up with your outpatient mental health provider at [facility] on 06/12/17 to obtain information about the follow up appointment made for you. Please maintain compliance with your prescribed medication and take over the counter medication as directed. DEPRESSION: Your evaluation reveals that you have mental depression. While symptoms may be vague, they often include disturbance of sleep, fatigue, loss of appetite, and general loss of interest in life. While depression may be a side effect of drugs, or a reaction to a major change in your life, many cases have no known cause. If depression is acute, and related to a major loss in your life, you can expect it to clear completely with time. If you have been depressed a long time, are prone to repeated bouts of depression or low mood, or have been thinking of suicide, get help. Depression can be treated with anti-depressant medication and counselling. Long-term depression will often take a few weeks to clear, even with appropriate medication. Follow-up care is important. SUICIDAL IDEATION: Suicidal ideation is a common medical term for thoughts about suicide, which may be as detailed as a formulated plan, without the suicidal act itself. Although most people who undergo suicidal ideation do not commit suicide, some go on to make suicide attempts. The range of suicidal ideation varies greatly from fleeting to detailed planning, role playing, and unsuccessful attempts. While thoughts about suicide are common, most people do not carry out serious actions to commit suicide. Based upon your evaluation and discussion with you, we do not believe you are currently at risk to act upon your thoughts of suicide. You have agreed to return to the Emergency Department, at any time, if you feel inclined to act upon your suicidal thoughts. FOLLOW-UP CARE: If you have been referred to a physician for follow-up care, call the physicians office for an appointment as you were instructed or within the next two days. If you experience worsening or a significant change in your symptoms, notify the physician immediately or return to the Emergency Department at any time for re-evaluation. Bipolar Disorder Bipolar disorder is also called manic-depressive disorder. Depression alternates with brain hyperactivity called balaji. Each phase lasts from several days to a few weeks. We don't know exactly what causes bipolar disorder, but it's treatable. During the "manic phase," you may feel elated and energetic. You may have racing thoughts, rapid speech, increased activity, and grandiose ideas. During this time, you may not realize how poor your judgement is. Inappropriate spendi ng, drug abuse, excessive alcohol use, marriage problems, and irresponsible sexual behavior are common during the manic phase. During the "depressive phase," you might feel depressed, guilty, worthless, fatigued, and unable to concentrate. You might have thoughts of suicide. Good treatments are available for bipolar disorder. [place] is a classic drug for bipolar disorder, and is still often useful. If the manic phase is very mild, an antidepressant alone can be prescribed. If the manic phase is very severe, an antipsychotic medicine (such as Haldol) may be needed. The treatment must be matched to your symptoms, so it's important to work closely with your psychiatric care provider. Contact your physician, the hospital emergency center, crisis line, or your counsellor if you are losing control or having self-destructive thoughts. Referrals: VANDANA YANG MD [PEDIATRICS] - Follow up as needed Mireya TUTTLE [Provider Group] - Follow up as needed
--- NOTE | 2018-06-09 07:38 | EKG REPORT ---
SEVERITY:- ABNORMAL ECG - SINUS RHYTHM BORDERLINE PROLONGED QT INTERVAL IVCD : Confirmed by: Rm Yi MD 09-Jun-2018 07:38:34
--- NOTE | 2018-06-09 09:42 | ER Document Report ---
Doctor's Note Notes: 06/09/18 09:42 33-year-old male who presents today with a past medical history as recorded with some suicidal ideations that are passive in nature without plan. He believes he may need his medications adjusted. Labs and vital signs are stable with some mild hematuria. Patient denies any abdominal, flank pain, or fevers. Awaiting psychiatry/psychology evaluation. They believe the most likely just the patient's medications. They state that the patient has follow-up at [facility]. 06/09/18 11:30 Patient is only been here 4 and 1/2 hours. They have changed the patient's medications. I believe that we should observe the patient at least 24 hours with medication changes before discharge. They would request at that time a one-month prescription and will call the [facility] facility on Monday to help expedite the follow-up appointment. 06/09/18 15:10 The psychology/psychiatry team has recently come up to me stating that they believe that the patient who would like to go home can leave. I have had a long discussion with the patient once again. He states he does not like the new medications that we have started him on and does not believe he will take them. He states his symptoms are no worse nor are any better. He states he would like to go home because he would like to feed his cat. He does have a house guest currently staying at his house. I have asked that the psychology team ask Dr. Garza to give me a call so that I can talk to her directly. 06/09/18 15:18 The patient left the emergency department despite us telling him that he would need to stay I would have to take out involuntary commitment given my concern about his mental health. We have contacted security given that the patient has left and I will fill out the IVC 24-hour hold paperwork. I do believe it would be beneficial to have at least 24-hour observation on this patient that we have restarted new medications on to assess his mental well- being in the morning before we were able to decipher that the patient is not a threat to himself or others.
[2018-06-09] MEDS: OLANZAPINE 5 MG TABLET PO SCH ×2 (11:03→20:28)
[2018-06-09] MEDS: BENZTROPINE MESYLATE 1 MG TABLET PO SCH (11:03)
--- NOTE | 2018-06-09 11:20 | PSYCHOLOGICAL NOTE ---
Psych Note - Psych Note Date seen by psych provider: 06/09/18 Time seen by psych provider: 07:15 Psych Note: Reason for consult:SI Contact Permissions: Mehran Bravo Patient is a 33 yo male presenting to the ED voluntarily with concerns of SI. Patient has one prior visit on 03/10/17 for SI. Tox screen is negative for all substances. Patient is prescribed Lamictal 100mg, Ramelteon 8mg, and Geodon 60mg through [facility] where he also attends a day program. There have been no recent medication changes. Patient reports increasing depression with depressed mood, anhedonia, isolating and withdrawing from his day program to 1x/week, insomnia, and SI "thinking I didn't want to be alive anymore" for the last 3 months. He started Googling suicide methods and reports it became "overwhelming/couldn't find anything/becoming an obsession/so I decided to stop", increasing from 30mins/day to up all night. He ceased this behavior 4 days ago. Patient discloses that he's been taking Tylenol for his scoliosis pain and that he had increased his use to 2-4 Tylenol per 1/2 hour. He reports having suicidal thoughts last night but I didn't follow through/I went to my neighbors seeking help and then I came here/I'm not going to do anything". Patient reports prior IP hospitalizations and denies prior suicide attempts. He lives alone and [facility]. Patient endorses Bipolar Disorder, Schizophrenia not because of sx's but because he was dx at 9 years old, per report. He dropped out of school in the 10th grade and discloses that he has a learning disorder with Dyslexia. Shelly, who is Patient's neighbor and primary support, states that he has been having SI for the last several months and has recently been researching how to do it. Yesterday, he came out onto the porch where the neighbors were socializing and seemed frustrated and said he was going to do it but denied a plan. Shelly then brought him into the ED. He has been taking a lot of Tylenol, she says. She agrees to provide additional support to include follow up with [place] and transportation, check in frequently, ask about SI and medications, and call [facility] or bring him to the ED as needed. Patient is alert and oriented x 4. Mood is "tired" with euthymic affect. Patie nt denies SI, HI, and AV/H, does not appear to be responding to internal stimuli, and no delusions were noted. Conversational speech was WNL for rate, tone, and prosody. Eye contact was well maintained. Thought processes were linear, organized, and rational. Intellectual abilities were estimated within the average range. Attention/concentration was WNL while, insight, judgment, and impulse control were good. Diagnosis: 296.80 (F31.9) Unspecified Bipolar and Related Disorder, per hx Schizophrenia, per pt report R/O IDD Medication recommendations as per psychiatric provider, Dr. Caceres are as follows: Discontinue Ramelteon and Geodon Start Zyprexa 5mg twice daily Start Cogentin 1mg daily Impression/Plan: Patient is psychiatrically clear from acute psychiatric services as there is no risk of harm to self aeb patient denies SI "I'm not going to do anything" and recommended to discharge to home/self-care. Patient is a 33 yo male with Bipolar Disorder, per hx and has been suffering depression with passive SI "to not be alive anymore". Patient demonstrated good judgment seeking help from his neighbor and coming to the ED and denies plan or intent. Medication change to address depression was made per patient request. [facility] will secure patient an earlier appointment at [place] on Monday06/11/18 as his next scheduled appointment is not till 07/29/18. Patient's neighbor agrees to provide additional support to include follow up with [place] and transportation, check in frequently, ask about SI and medications, and call [facility] or bring him to the ED as needed. Patient was recommended to resume participation in his day program, advised to take his medication as prescribed to include dosing instructions for Tylenol and provided with psychoeducation and contact information for [facility]. He verbalizes understanding and endorses the plan. Consulted Dr. Garza in the care and treatment of this patient and ED physician who wants to hold patient overnight for further observation of medication changes.
--- NOTE | 2018-06-10 09:25 | ER Document Report ---
Doctor's Note Notes: 06/10/18 09:25 Patient is much more calm and cooperative at this time. He is taking his medications appropriately. After discussing the patient's medication profile, the patient does agree to take the Zyprexa 5 mg at night only. We have provided a one-month prescription for this. Patient denies any suicidal or homicidal ideations. The behavioral health/psychiatry team here will help expedite the patient's follow-up. Patient is very comfortable with this plan.
[2018-06-10] MEDS ORDERED: CEFTRIAXONE INJ 250 MG VIAL IM ONE (09:31)
[2018-06-10] MEDS ORDERED: AZITHROMYCIN 1 GM SUSP PACKET PO ONE (09:31)
[2018-06-10] MEDS: OLANZAPINE 5 MG TABLET PO SCH (09:40)
[2018-06-10] MEDS: BENZTROPINE MESYLATE 1 MG TABLET PO SCH (09:40)
[2018-06-10 09:58] VITALS: BP 150/88
[2018-06-10 14:43] LABS: CHLAM PCR NOT DETECTED (NOT DETECT); GON PCR NOT DETECTED (NOT DETECT)
== END 2018-06-10 09:57 | disposition home or self-care (01) ==
LOC: ER 22:34
DX: R45.851 Suicidal ideations (principal); F32.9 Major depressive disorder, single episode, unspecified; Z79.899 Other long term (current) drug therapy; F17.200 Nicotine dependence, unspecified, uncomplicated
CPT/HCPCS: 93005; 99285; 96372; 36415; 87086; 80307 ×4; 85025; 87088; 80053; 81001; 87491; 87591; 93010; A9270 ×5; J0696; 87186; Q0144

== ENCOUNTER 2018-08-25 00:38 | Emergency (ER) | payer MEDICARE, MEDICAID ==
--- NOTE | 2018-08-25 01:15 | RADIOLOGY REPORT (SQ) ---
EXAM DESCRIPTION: CT HEAD WITHOUT IV CONTRAST COMPLETED DATE/TME: 08/25/2018 00:00 CLINICAL HISTORY: 33 years, Male, fall/ head injury COMPARISON: None Available. Technique: Contiguous axial images of the brain were obtained without the administration of intravenous contrast. Coronal and sagittal reformats obtained and reviewed. This exam was performed according to our departmental dose-optimization program which includes use of Automated Exposure Control, adjustment of the mA and/or kV according to patient size and/or use of iterative reconstruction technique. Findings: Brain: No hemorrhage. No territorial infarct. No mass effect. No herniation. Ventricles: Within normal limits for patient's age. Bones: No acute osseous abnormality. Paranasal sinuses: Unremarkable. Mastoid air cells: Unremarkable. Soft tissues: No acute abnormality. IMPRESSION: No acute intracranial abnormalities.
[2018-08-25] MEDS ORDERED: NORMAL SALINE 1000 ML 1,000 ML IV ONE (02:24)
--- NOTE | 2018-08-25 02:27 | ER Document Report ---
ED General - General Chief Complaint: Altered Mental Status Stated Complaint: ALTERED MENTAL STATUS Time Seen by Provider: 08/25/18 00:51 Primary Care Provider: YELENA GONSALEZ DDS [Primary Care Provider] - Follow up as needed Notes: Patient is a 33-year-old male past medical history of morbid obesity, multiple psychiatric comorbidities, presents after a possible syncopal episode versus mechanical fall with associated head trauma. Patient apparently fell into a door, struck his head and was unconscious. EMS was dispatched to the scene and states that the patient had fluctuating levels of mental status during transport to the hospital. At the time of my assessment patient combines of a dull, throbbing, constant discomfort to his left posterior scalp. Nothing improves the pain, touching the area worsens the pain. Regards the pain is being severe. Denies history of similar episodes in the past. Denies focal weakness or numbness but does state that he feels somewhat confused. Does not take any form of anticoagulation. Denies any chest pain, shortness of breath, and has no family history of early cardiac disease. Denies previous history of syncope. TRAVEL OUTSIDE OF THE [place] IN LAST 30 DAYS: No - Related Data Allergies/Adverse Reactions: Latex, Natural Rubber Allergy (Verified 10/16/16 17:12) quetiapine [From Seroquel] Allergy (Verified 10/16/16 17:12) zolpidem [From Ambien] Allergy (Verified 10/16/16 17:12) Past Medical History - General Information source: Patient, Relative - Social History Smoking Status: Current Every Day Smoker Chew tobacco use (# tins/day): No Frequency of alcohol use: None Drug Abuse: None Lives with: Family Family History: Reviewed & Not Pertinent Patient has suicidal ideation: No Patient has homicidal ideation: No Pulmonary Medical History: Reports: Hx Asthma Renal/ Medical History: Denies: Hx Peritoneal Dialysis Psychiatric Medical History: Reports: Hx Attention Deficit Hyperactivity Disorder, Hx Bipolar Disorder, Hx Depression Past Surgical History: Reports: Hx Cholecystectomy Review of Systems - Review of Systems Notes: Constitutional: Negative for fever. Eyes: Negative for visual changes. ENT: Negative for facial injury Cardiovascular: Negative for chest injury. Respiratory: Negative for shortness of breath. Gastrointestinal: Negative for abdominal injury. Genitourinary: Negative for genital injury Musculoskeletal: Negative for back injury. Skin: Negative for laceration/abrasions. Neurological: Positive for head injury. Physical Exam - Vital signs Vitals: Temp Pulse Resp BP Pulse Ox 98.0 F 116 H 14 140/87 H 100 08/25/18 00:38 08/25/18 00:38 08/25/18 00:38 08/25/18 00:38 08/25/18 00:38 Interpretation: Tachycardic Notes: PHYSICAL EXAMINATION: GENERAL: Well-appearing, no acute distress. HEAD: Atraumatic, normocephalic. EYES: Pupils equal round and reactive to light, extraocular movements intact, sclera anicteric, conjunctiva are normal. ENT: nares patent, no oral pharyngeal trauma. No hemotympanum, no Treviño's sign, no raccoon eyes. NECK: No midline cervical spine tenderness. Patient able to move their head to 45 bilaterally without any discomfort. LUNGS: Breath sounds clear to auscultation bilaterally and equal. No wheezes rales or rhonchi. HEART: Regular rate and rhythm without murmurs. CHEST WALL: No ecchymosis over the chest wall. ABDOMEN: Soft, nontender, normoactive bowel sounds. No guarding, no rebound. No abdominal bruising EXTREMITIES: Normal range of motion, no pitting or edema. No long bone deformities. BACK: No midline spinal tenderness, step-offs, or deformities. NEUROLOGICAL: Face symmetric. Tongue protrudes midline. Extraocular motions intact. Pupils are 2 mm and equally reactive. Normal speech. 5 out of 5 s trength in both the distal and proximal upper and lower extremities bilaterally. Sensation is grossly intact throughout. Finger to nose testing normal. Pronator drift normal. PSYCH: Normal mood, normal affect. Oriented to person, place, location. SKIN: Warm, Dry, normal turgor, no rashes or lesions noted. Course - Re-evaluation Re-evalutation: 08/25/18 02:22 Presentation of probable syncope of unclear etiology. Patient did strike his head during the fall with mild confusion at time of presentation. CT head is unremarkable. Patient normotensive, alert, without focal neurologic deficits at time of arrival. Denies syncope was during exertion. Patient was standing outside smoking when this happened. No preceding symptoms of palpitations, chest pain, or shortness of breath. EKG is without evidence of HCOM, right heart strain, ST changes to suggest ischemia, QTC greater than 500, delta wave, epsilon wave, or Brugada syndrome. Patient denies any family history of sudden cardiac , personal history of of structural heart disease. Patient denies any symptoms to suggest an acute PE, SC, TAD, SAH, seizure, or acute GI bleed as the etiology of their syncope today. Specifically denies any chest pain or shortness of breath. No pleuritic discomfort. On exam, no murmurs to suggest critical aortic stenosis as possible etiology. Based on overall clinical history, exam findings, vitals, and patients appearance, I feel it is safe for patient to be discharged home at this time with close outpatient follow-up and strict return precautions. Patient is in agreement with this plan, has verbalized indications for return to ED, and questions have been answered. - Vital Signs Vital signs: Temp Pulse Resp BP Pulse Ox 98.0 F 116 H 12 138/80 H 99 08/25/18 00:38 08/25/18 00:38 08/25/18 03:01 08/25/18 03:01 08/25/18 03:01 - Laboratory Result Diagrams: 08/25/18 02:40 08/25/18 02:40 - Diagnostic Test Radiology reviewed: Image reviewed, Reports reviewed Radiology results interpreted by me: 08/25/18 02:24 CT head: No acute intracranial bleed or mass - EKG Interpretation by Me Additional EKG results interpreted by me: 08/25/18 04:06 Sinus tachycardia, rate 106. No ST elevations or depressions. QTC 479. Discharge - Discharge Clinical Impression: Syncope Qualifiers: Syncope type: unspecified Qualified Code(s): R55 - Syncope and collapse Head trauma Qualifiers: Encounter type: initial encounter Qualified Code(s): S09.90XA - Unspecified injury of head, initial encounter Concussion Qualifiers: Encounter type: initial encounter Loss of consciousness presence/duration: with LOC of unspecified duration Qualified Code(s): S06.0X9A - Concussion with loss of consciousness of unspecified duration, initial encounter Condition: Good Disposition: HOME, SELF-CARE Additional Instructions: You were seen today after an episode of passing out. Your EKG here is normal. At this time, we do not feel that your episode of passing out was from any life- threatening cause. Please drink plenty of fluids over the next several days. Return to emergency department if you have any further episodes of syncope, headache, weakness, numbness, chest pain, or shortness of breath. Please follow up closely with your primary care physician. You have likely sustained a contusion (bruise) to your head. If you had a CT scan done, it did not show any evidence of serious injury or bleeding. Symptoms to expect from a concussion include nausea, mild to moderate headache, difficulty concentrating or sleeping, and mild lightheadedness. These symptoms should improve over the next few days to weeks. Return to the emergency department or follow-up with your primary care doctor if your symptoms are not improving over this time. Signs of a more serious head injury include vomiting, severe headache, excessive sleepiness or confusion, and weakness or numbness in your face, arms or legs. Return immediately to the Emergency Department if you experience any of these more concerning symptoms. Rest, avoid strenuous physical or mental activity, and avoid activities that could potentially result in another head injury until all your symptoms from this head injury are completely resolved for at least 2-3 weeks. If you participate in sports, get cleared by your doctor or emr trainer before returning to play. You may take ibuprofen or acetaminophen over the counter according to label instructions for mild headache or scalp soreness. Referrals: YELENA GONSALEZ DDS [Primary Care Provider] - Follow up as needed
[2018-08-25 02:53] LABS: ABSOLUTE EOSINOPHILS # (AUTO) 0.2 10^3/uL (0.0-0.6); ABSOLUTE LYMPHOCYTES (AUTO) 2.9 10^3/uL (0.5-4.7); ABSOLUTE MONOCYTES (AUTO) 0.5 10^3/uL (0.1-1.4); BASOPHILS % (AUTO) 0.2 % (0-2); EOSINOPHILS % (AUTO) 2.2 % (0-6); HEMATOCRIT 40.7 % (37.9-51.0); LYMPHOCYTES % (AUTO) 30.4 % (13-45); MEAN CORPUSCULAR HGB CONC 34.5 g/dL (32.0-36.0); MEAN CORPUSCULAR VOLUME 84 fl (80-97); MONOCYTES % (AUTO) 5.5 % (3-13); PLATELET COUNT 311 10^3/uL (150-450); RED BLOOD COUNT 4.83 10^6/uL (4.35-5.55); RED CELL DISTRIBUTION WIDTH 13.7 % (11.5-14.0); SEGMENTED NEUTROPHILS % (AUTO) 61.7 % (42-78); TOTAL CELLS COUNTED % (AUTO) 100 %; WHITE BLOOD COUNT 9.7 10^3/uL (4.0-10.5)
[2018-08-25 03:04] VITALS: BP 138/80
[2018-08-25 03:25] LABS: ANION GAP 10 (5-19); BLOOD UREA NITROGEN 11 mg/dL (7-20); CALCIUM 9.3 mg/dL (8.4-10.2); CARBON DIOXIDE 27 mmol/L (22-30); CHLORIDE 104 mmol/L (98-107); GLUCOSE 96 mg/dL (75-110); POTASSIUM 4.1 mmol/L (3.6-5.0)
--- NOTE | 2018-08-25 23:43 | EKG REPORT ---
SEVERITY:- BORDERLINE ECG - SINUS TACHYCARDIA CONSIDER RIGHT VENTRICULAR HYPERTROPHY BORDERLINE PROLONGED QT INTERVAL : Confirmed by: Sobeida Joaquin MD 25-Aug-2018 23:42:14
== END 2018-08-25 04:40 | disposition home or self-care (01) ==
LOC: ER 00:38
DX: S06.0X9A Concussion with loss of consciousness of unspecified duration, initial encounter (principal); R55 Syncope and collapse; R41.82 Altered mental status, unspecified; E66.01 Morbid (severe) obesity due to excess calories; W18.30XA Fall on same level, unspecified, initial encounter; Z91.040 Latex allergy status; F17.200 Nicotine dependence, unspecified, uncomplicated
CPT/HCPCS: 93005; 99285; 96360; 36415; 85025; 80048; 84484; 70450; 93010; J7030

== ENCOUNTER 2018-11-10 19:49 | Emergency (ER) | payer MEDICARE, MEDICAID ==
--- NOTE | 2018-11-10 20:31 | ER Document Report ---
ED Medical Screen (RME) - General Chief Complaint: Testicular Swelling Stated Complaint: SWOLLEN LEFT TESTICLE Time Seen by Provider: 11/10/18 20:23 Primary Care Provider: YELENA GONSALEZ DDS [Primary Care Provider] - Follow up as needed Mode of Arrival: Ambulatory Information source: Patient Notes: This is a 33-year-old male presented to the emergency department chief complaint of left testicular swelling and pain that started 4 days ago. He now reports brown discharge coming from his penis at the end of his urinary stream. He denies any dysuria. He is concerned about possible STDs. Exam: Obvious swelling noted to left testicle without erythema. I have greeted and performed a rapid initial assessment of this patient. A comprehensive ED assessment and evaluation of the patient, analysis of test results and completion of the medical decision making process will be conducted by additional ED providers. I have specifically instructed the patient or f amily members with the patient to immediately return to any nursing staff should anything change in the patient's condition or with their chief complaint. This medical record was dictated with voice recognizing software. There may be grammatical, syntax errors that are unintended. TRAVEL OUTSIDE OF THE [place] IN LAST 30 DAYS: No - Related Data Allergies/Adverse Reactions: Latex, Natural Rubber Allergy (Verified 11/10/18 20:22) quetiapine [From Seroquel] Allergy (Verified 11/10/18 20:22) trazodone Allergy (Verified 11/10/18 20:22) zolpidem [From Ambien] Allergy (Verified 11/10/18 20:22) Past Medical History - Social History Family history: Reviewed & Not Pertinent Pulmonary Medical History: Reports: Hx Asthma Renal/ Medical History: Denies: Hx Peritoneal Dialysis Psychiatric Medical History: Reports: Hx Attention Deficit Hyperactivity Disorder, Hx Bipolar Disorder, Hx Depression Past Surgical History: Reports: Hx Cholecystectomy Physical Exam - Vital signs Vitals: Temp Pulse Resp BP Pulse Ox 98.4 F 97 16 150/77 H 97 11/10/18 19:58 11/10/18 19:58 11/10/18 19:58 11/10/18 19:58 11/10/18 19:58 Course - Vital Signs Vital signs: Temp Pulse Resp BP Pulse Ox 98.4 F 97 16 150/77 H 97 11/10/18 19:58 11/10/18 19:58 11/10/18 19:58 11/10/18 19:58 11/10/18 19:58 Doctor's Discharge - Discharge Referrals: YELENA GONSALEZ DDS [Primary Care Provider] - Follow up as needed
[2018-11-10] MEDS ORDERED: MORPHINE SULFATE 10 MG/ML INJ ONE (21:06)
[2018-11-10 21:08] LABS: APPEARANCE,URINE CLOUDY; BILIRUBIN,URINE NEGATIVE (NEGATIVE); COLOR,URINE AMBER; GLUCOSE, URINE NEGATIVE (NEGATIVE); KETONES,URINE TRACE mg/dL (NEGATIVE); LEUKOCYTE ESTERASE,URINE LARGE (NEGATIVE); NITRITE,URINE NEGATIVE (NEGATIVE); PROTEIN,URINE 100 mg/dL (NEGATIVE); URINE SPECIFIC GRAVITY 1.029; UROBILINOGEN,URINE NEGATIVE mg/dL (<2.0)
--- NOTE | 2018-11-10 21:47 | RADIOLOGY REPORT (SQ) ---
Scrotal ultrasound HISTORY: Left testicular swelling. FINDINGS: Right testis measures 4.4 x 3.3 x 3.3 cm. Left testis measures 5.1 x 2.6 x 3.4 cm. Vascular flow preserved within both testes on color and spectral Doppler imaging. Flow is symmetric. Right epididymis measures 2.2 x 1.4 x 1.3 cm. Left epididymis measures 1.4 x 1.5 x 2.6 cm. Moderate right hydrocele. Left epididymal head cyst measuring 0.4 cm. Extensive diffuse edema is seen in the scrotum diffusely. IMPRESSION: No evidence for testicular torsion. Moderate right hydrocele. Diffuse extensive edema in the scrotum.
--- NOTE | 2018-11-10 22:03 | ER Document Report ---
ED General - General Chief Complaint: Testicular Swelling Stated Complaint: SWOLLEN LEFT TESTICLE Time Seen by Provider: 11/10/18 20:23 Primary Care Provider: [facility] [Provider Group] - Follow up as needed YELENA GONSALEZ DDS [ASSOCIATE] - Follow up as needed Mode of Arrival: Ambulatory Information source: Patient Notes: This 33-year-old male presents emergency department with complaints of testicular pain and swelling for the past 4 days with penile discharge of brown color. He also reports hematuria. Denies fever vomiting diarrhea. Patient is sexually active with one male partner. Reports they do use condoms. Patient reports he had the same symptoms approximately 1 year ago was treated with the medication, antibiotics. Reports the swelling did resolve. TRAVEL OUTSIDE OF THE [place] IN LAST 30 DAYS: No - HPI Onset: Other - 4 days Onset/Duration: Persistent Severity: Severe Pain Level: 5 - Related Data Allergies/Adverse Reactions: Latex, Natural Rubber Allergy (Verified 11/10/18 20:22) quetiapine [From Seroquel] Allergy (Verified 11/10/18 20:22) trazodone Allergy (Verified 11/10/18 20:22) zolpidem [From Ambien] Allergy (Verified 11/10/18 20:22) Past Medical History - General Information source: Patient - Social History Smoking Status: Current Every Day Smoker Frequency of alcohol use: Social Drug Abuse: None Family History: Reviewed & Not Pertinent Patient has suicidal ideation: No Patient has homicidal ideation: No Pulmonary Medical History: Reports: Hx Asthma Renal/ Medical History: Denies: Hx Peritoneal Dialysis Psychiatric Medical History: Reports: Hx Attention Deficit Hyperactivity Disorder, Hx Bipolar Disorder, Hx Depression Past Surgical History: Reports: Hx Cholecystectomy Physical Exam - Vital signs Vitals: Temp Pulse Resp BP Pulse Ox 98.4 F 97 16 150/77 H 97 11/10/18 19:58 11/10/18 19:58 11/10/18 19:58 11/10/18 19:58 11/10/18 19:58 - General General appearance: Alert, Anxious In distress: None - HEENT Head: Normocephalic Eyes: Normal Conjunctiva: Normal Extraocular movements intact: Yes Neck: Normal, Supple. No: Lymphadenopathy - Respiratory Respiratory status: No respiratory distress Chest status: Nontender Breath sounds: Normal Chest palpation: Normal - Cardiovascular Rhythm: Regular Heart sounds: Normal auscultation Murmur: No - Abdominal Inspection: Morbidly Obese Distension: No distension Bowel sounds: Normal Tenderness: Nontender Organomegaly: No organomegaly - Genitourinary Tenderness: Nontender, Testicle tender. No: Lesions, Epididymis tender Scrotum: Swelling. No: Redness, Hot to touch - Back Back: Normal, Tender - Patient reports history of chronic back pain due to scoliosis. - Extremities General upper extremity: Normal ROM General lower extremity: Normal ROM, Normal weight bearing - Neurological Neuro grossly intact: Yes Cognition: Normal Orientation: AAOx4 [place] Coma Scale Eye Opening: Spontaneous Maryann Coma Scale Verbal: Oriented [place] Coma Scale Motor: Obeys Commands Maryann Coma Scale Total: 15 Speech: Normal - Psychological Associated symptoms: Normal affect, Normal mood - Skin Skin Temperature: Warm Skin Moisture: Dry Skin Color: Normal Course - Re-evaluation Re-evalutation: 11/11/18 01:33 This 33-year-old male presents to the emergency department with testicular swelling penile discharge hematuria. Reports symptoms for the past 4 days. Reports he has had the same symptoms a year ago and was treated with antibiotics and symptoms resolved. Testicular ultrasound shows moderate hydrocele scrotal edema. UA shows large leukocytes, .182 wbcs, negative gonorrhea chlamydia Testicular exam shows swollen testicles greater than right no erythema no excoriation. Will treat patient for UTI and edema with Keflex and Septra. Patient was instructed on ibuprofen and given one [place] here for the pain. He verbalized understanding he does have a primary care provider he can follow-up with Monday for a urology consult as indicated. He verbalized understanding to all instructions Dictation of this chart was performed using voice recognition software; therefore, there may be some unintended grammatical errors. Scrotum Ultrasound 11/10/18 20:29 IMPRESSION: No evidence for testicular torsion. Moderate right hydrocele. Diffuse extensive edema in the scrotum. Urine Color JESSICA 11/10/18 20:47 Urine Appearance CLOUDY 11/10/18 20:47 Urine pH 5.0 (5.0-9.0) 11/10/18 20:47 Ur Specific [place] 1.029 11/10/18 20:47 Urine Protein 100 mg/dL (NEGATIVE) H 11/10/18 20:47 Urine Glucose (UA) NEGATIVE mg/dL (NEGATIVE) 11/10/18 20:47 Urine Ketones TRACE mg/dL (NEGATIVE) H 11/10/18 20:47 Urine Blood LARGE (NEGATIVE) H 11/10/18 20:47 Urine Nitrite NEGATIVE (NEGATIVE) 11/10/18 20:47 Ur Leukocyte Esterase LARGE (NEGATIVE) H 11/10/18 20:47 Urine WBC (Auto) >182 /HPF 11/10/18 20:47 Urine RBC (Auto) 82 /HPF 11/10/18 20:47 - Vital Signs Vital signs: Temp Pulse Resp BP Pulse Ox 97.7 F 94 18 148/85 H 95 11/10/18 23:29 11/10/18 23:29 11/10/18 23:29 11/10/18 23:29 11/10/18 23:29 - Laboratory Laboratory results interpreted by me: 11/10/18 20:47 Urine Protein 100 H Urine Ketones TRACE H Urine Blood LARGE H Ur Leukocyte Esterase LARGE H - Diagnostic Test Radiology reviewed: Image reviewed, Reports reviewed Discharge - Discharge Clinical Impression: Testicular swelling, Penile discharge, Orchitis, Cellulitis of scrotum Condition: Stable Disposition: HOME, SELF-CARE Instructions: Cephalexin ([facility]), Ibuprofen (General) ([facility]), Trimethoprim-Sulfa ([facility]) Additional Instructions: *You have been evaluated for urinary frequency, UTI, testicular swelling, penile discharge, orchitis, cellulitis scrotum *Take medication as prescribed *Push fluids *Follow up with your primary care provider within one week for recheck and referral to urology as indicated *Return to ED for worsening condition, changes, needs Monitor your blood pressure. Your blood pressure was elevated today. This may be because you were anxious, in pain or because you need medication. It is important to follow up with your primary care provider for full evaluation. Prescriptions: Cephalexin [Cephalexin 500 MG Tablet] 500 mg PO QID #20 tablet Ibuprofen [Motrin 800 mg Tablet] 800 mg PO TID #15 tablet Sulfamethoxazole/Trimethoprim [Bactrim Ds Tablet] 1 each PO BID #20 tablet Forms: Elevated Blood Pressure Referrals: YELENA GONSALEZ DDS [ASSOCIATE] - Follow up as needed [facility] [Provider Group] - Follow up as needed
[2018-11-10 22:27] LABS: CHLAM PCR NOT DETECTED (NOT DETECT)
[2018-11-10] MEDS ORDERED: CEPHALEXIN 500 MG CAPSULE PO ONE (23:08)
[2018-11-10] MEDS ORDERED: HYDROCODONE/ACETAMINOPHEN 5-325 MG TABLET PO ONE (23:08)
[2018-11-10] MEDS ORDERED: SULFAMETHOXAZOLE/TRIMETHOPRIM 800-160 MG TABLET PO ONE (23:08)
[2018-11-10 23:37] VITALS: BP 148/85
== END 2018-11-10 23:37 | disposition home or self-care (01) ==
LOC: ER 19:49
DX: N45.2 Orchitis (principal); N43.3 Hydrocele, unspecified; N39.0 Urinary tract infection, site not specified; R36.9 Urethral discharge, unspecified; R31.9 Hematuria, unspecified; F17.200 Nicotine dependence, unspecified, uncomplicated; J45.909 Unspecified asthma, uncomplicated; Z91.040 Latex allergy status; Z88.8 Allergy status to other drugs, medicaments and biological substances
CPT/HCPCS: 99284; 87086; 87088; 81001; 87186; 87491; 87591; 76870; 93976; A9270 ×3

== ENCOUNTER 2019-11-19 08:34 | Emergency (ER) | payer MEDICARE, MEDICAID ==
--- NOTE | 2019-11-19 10:20 | ER Document Report ---
ED General - General Chief Complaint: Sore Throat Stated Complaint: SORE THROAT Time Seen by Provider: 11/19/19 10:02 TRAVEL OUTSIDE OF THE [place] IN LAST 30 DAYS: No - HPI Notes: Chief complaint: Sore throat and sinus congestion History of present illness: 34-year-old male with a history of bipolar disorder and schizophrenia presenting with 3-day history of sore throat, nasal congestion and nonproductive cough. No fever. No vomiting. No dyspnea. No chest pain. No known covert exposure. Patient lives alone. Smokes about 1/4 pack of cigarettes per day. Patient says he typically gets "bad sore throat" and sinus infections about twice a year and is typically required antibiotics for this in the past. - Related Data Allergies/Adverse Reactions: Latex, Natural Rubber Allergy (Verified 11/19/19 10:22) quetiapine [From Seroquel] Allergy (Verified 11/19/19 10:22) trazodone Allergy (Verified 11/19/19 10:22) zolpidem [From Ambien] Allergy (Verified 11/19/19 10:22) Past Medical History - General Information source: Patient, [facility] Records - Social History Smoking Status: Current Every Day Smoker Frequency of alcohol use: None Drug Abuse: None Family History: Reviewed & Not Pertinent - Past Medical History Cardiac Medical History: Reports: None Pulmonary Medical History: Reports: Hx Asthma Endocrine Medical History: Denies: Hx Diabetes Mellitus Type 1, Hx Diabetes Mellitus Type 2 Renal/ Medical History: Denies: Hx Peritoneal Dialysis Psychiatric Medical History: Reports: Hx Attention Deficit Hyperactivity Disorder, Hx Bipolar Disorder, Hx Depression, Hx Schizoaffective Disorder Past Surgical History: Reports: Hx Cholecystectomy Review of Systems - Review of Systems Notes: Constitutional: Negative for fever. HENT: As per HPI. Eyes: Negative for visual changes. Cardiovascular: Negative for chest pain. Respiratory: Negative for shortness of breath. Gastrointestinal: Negative for abdominal pain, vomiting or diarrhea. Genitourinary: Negative for dysuria. Musculoskeletal: Negative for back pain. Skin: Negative for rash. Neurological: Negative for headaches, focal weakness or numbness. 10 point ROS negative except as marked above and in HPI. Physical Exam - Vital signs Vitals: Temp Pulse Resp 98.7 F 114 H 18 11/19/19 10:11 11/19/19 10:11 11/19/19 10:11 - Notes Notes: GENERAL: Obese male approximately stated age appearing in no acute distress. SKIN: Good turgor no rashes. HEAD: Normocephalic atraumatic. Mild diffuse sinus tenderness to percussion. EYES: PERRLA. EOMI. Conjunctivae and sclerae clear. EARS: CANALS AND TMS CLEAR. NOSE: Yellow nasal drainage bilaterally. MOUTH: Pharynx is edematous and intensely injected without exudate. No stridor or edema. No drooling. NECK: Supple. No masses or thyromegaly. Multiple enlarged tender anterior cervical lymph nodes bilaterally. Carotids 2+ without bruits. No JVD. BACK: Symmetrical without tenderness. CHEST: Respirations unlabored. Breath sounds clear and symmetrical. HEART: Regular rhythm. No murmur gallop or rub. ABDOMEN: Obese. Soft nontender without masses, organomegaly or rebound. Bowel sounds normally active. No bruits. GENITALIA: Deferred. EXTREMITIES: 2+ brawny edema both lower legs. No calf tenderness. Cap refill less than 1.5 seconds. Dorsalis pedis and posterior tibial pulses 3+ and symmetrical. NEUROLOGICAL: GCS 15. Alert and oriented x3. Normal gait. Fluent speech. Cranial nerves II through XII intact. Sensorimotor and cerebellar normal. Normal tone. PSYCHIATRIC: Flat affect. Course - Vital Signs Vital signs: Temp Pulse Resp BP Pulse Ox 98.7 F 114 H 18 11/19/19 10:11 11/19/19 10:11 11/19/19 10:11 Discharge - Discharge Clinical Impression: Acute pharyngitis, Acute sinusitis Condition: Stable Disposition: HOME, SELF-CARE Instructions: Sore Throat ([facility]) Prescriptions: Amoxicillin 1 tab PO TID #30 tab Acetaminophen/Dextromethorphan [Robitussin Cough-Sore Throat] 10 ml PO TID 7 Days #150 liquid
[2019-11-19 10:23] VITALS: BP 145/92
== END 2019-11-19 11:06 | disposition home or self-care (01) ==
LOC: ER 08:34
DX: J02.9 Acute pharyngitis, unspecified (principal); J01.90 Acute sinusitis, unspecified; R09.81 Nasal congestion; R05 Cough; J45.909 Unspecified asthma, uncomplicated; F17.210 Nicotine dependence, cigarettes, uncomplicated; Z91.040 Latex allergy status; Z88.8 Allergy status to other drugs, medicaments and biological substances
CPT/HCPCS: 99283

== ENCOUNTER → 2020-03-25 | Outpatient (CLI) | payer MEDICARE, MEDICAID ==
[2020-03-25 09:16] LABS: ABSOLUTE BASOPHILS # (AUTO) 0.1 10^3/uL (0.0-0.2); ABSOLUTE EOSINOPHILS # (AUTO) 0.3 10^3/uL (0.0-0.6); ABSOLUTE LYMPHOCYTES (AUTO) 1.9 10^3/uL (0.5-4.7); ABSOLUTE MONOCYTES (AUTO) 0.6 10^3/uL (0.1-1.4); ABSOLUTE NEUT (AUTO) 6.2 10^3/uL (1.7-8.2); BASOPHILS % (AUTO) 0.8 % (0-2); EOSINOPHILS % (AUTO) 3.8 % (0-6); HEMATOCRIT 37.8 % (37.9-51.0); LYMPHOCYTES % (AUTO) 21.2 % (13-45); MEAN CORPUSCULAR HEMOGLOBIN 29.5 pg (27.0-33.4); MEAN CORPUSCULAR HGB CONC 34.5 g/dL (32.0-36.0); MEAN CORPUSCULAR VOLUME 86 fl (80-97); MONOCYTES % (AUTO) 6.1 % (3-13); PLATELET COUNT 330 10^3/uL (150-450); RED BLOOD COUNT 4.42 10^6/uL (4.35-5.55); SEGMENTED NEUTROPHILS % (AUTO) 68.1 % (42-78); TOTAL CELLS COUNTED % (AUTO) 100 %; WHITE BLOOD COUNT 9.1 10^3/uL (4.0-10.5)
[2020-03-25 09:51] LABS: ALBUMIN 3.7 g/dL (3.5-5.0); ALKALINE PHOSPHATASE 75 U/L (38-126); ANION GAP 8 (5-19); ASPARTATE AMINO TRANSFERASE 67 U/L (17-59); BILIRUBIN,DIRECT 0.2 mg/dL (0.0-0.4); BILIRUBIN,TOTAL 0.6 mg/dL (0.2-1.3); BLOOD UREA NITROGEN 11 mg/dL (7-20); CALCIUM 9.1 mg/dL (8.4-10.2); CARBON DIOXIDE 30 mmol/L (22-30); CHLORIDE 100 mmol/L (98-107); CHOLESTEROL 136.81 mg/dL (0-200); GLUCOSE 126 mg/dL (75-110); POTASSIUM 4.3 mmol/L (3.6-5.0); TRIGLYCERIDES 119 mg/dL (<150)
[2020-03-25 10:03] LABS: DIRECT LDL 87 mg/dL (<100)
[2020-03-27 08:57] LABS: INSULIN 74.3 uIU/mL (2.6-24.9)
== END ==
LOC: OD 08:06
PROVIDERS: ATTEND Internal Medicine
DX: E66.3 Overweight (principal); R73.9 Hyperglycemia, unspecified; Z79.899 Other long term (current) drug therapy
CPT/HCPCS: 36415; 80053; 80061; 83036; 83525; 84443; 84681; 85025; 87070; 87077; 87186; 87205